=== PATIENT | female | born 1970 | race Caucasian/White ===

== ENCOUNTER 2016-12-15 21:38 | Emergency (ER) | payer SELFPAY ==
[2016-12-15 22:02] VITALS: BP 153/82
[2016-12-15] MEDS: DEXAMETHASONE SOD PHOS 4 MG/ML VIAL IM ONE (22:28)
[2016-12-15] MEDS: cefTRIAXone SODIUM 1 GM VIAL IM ONE (22:28)
[2016-12-15] MEDS: methylPREDNISolone ACETATE 80 MG/ML VIAL IM PRN (22:28)
[2016-12-15] MEDS: Lidocaine 1% 5ml(IM or SUTURE)(PAIN CLINIC) IJ ONE (22:29)
--- NOTE | 2016-12-16 06:11 | ED Physician Documentation ---
Skin Rash - HISTORIAN Historian: patient - HPI Stated Complaint: facial swelling Chief Complaint: Skin Rash Additional Information: started today Front/Back of Body, Lg (Walker): 1 - rash Onset: hours (6) Timing: still present Duration: worse Location: facial Quality: painful Identified Cause?: Yes (dental issues) When Did Symptoms Start: 12/15/16 Where: home Context: Medication Exposure: none Context: Food Exposure: none Context: Other Exposure: other (dental mary beth) Further Comments: no - ROS CONST: none CVS/RESP: none EYES/ENT: none GI/: none MS/SKIN/LYMPH: none NEURO/PSYCH: none - PAST HX Past History: hypertension, other (asthma) Other History: other (dental caries left lower jaw) Surgeries/Procedures: Yes (btl, c-sect, yohannes, t and a) Allergies/Adverse Reactions: Allergies Allergy/AdvReac Type Severity Reaction Status Date / Time aspirin AdvReac Wheezing Verified 03/13/16 22:23 Home Medications: Ambulatory Orders Medication Instructions Recorded Budesonide/Formoterol Fumarate 1 puff INH DAILY 11/18/14 [Symbicort 160-4.5 Mcg Inhaler] Lisinopril [Zestril] 20 mg PO DAILY 12/15/16 - SOCIAL HX Smoking History: non-smoker Alcohol Use: none Drug Use: none - FAMILY HX Family History: none - VITAL SIGNS Vital Signs: Vital Signs Temp Pulse Resp BP Pulse Ox 99.5 F 62 22 153/82 98 12/15/16 22:29 12/15/16 22:29 12/15/16 22:29 12/15/16 22:29 12/15/16 22:29 - REVIEWED ASSESSMENTS Nursing Assessment Reviewed: Yes Vitals Reviewed: Yes Progress - Results/Orders Results/Orders: no testing ordered - Progress Progress: Pt. given 1 gram Rocephin IM, 80 mg Depo Medrol IM and 8 mg Decadron IM in er Critical Care Note - Critical Care Note Total Time (mins): 0 ED Results Lab/Radiology - Lab Results Lab Results: none ordered - Radiology Radiology Impressions: none ordered - Orders Orders: ED Orders Category Date Time Status Dexamethasone Sod Phosphate [Decadron] Med 12/15/16 22:11 Discontinued 8 mg IM NOW ONE Lidocaine 1% 5ml(IM or SUTURE) [Xylocaine] Med 12/15/16 22:11 Discontinued 50 mg IJ NOW ONE cefTRIAXone SODIUM [Rocephin] Med 12/15/16 22:11 Discontinued 1 gm IM NOW ONE methylPREDNISolone ACETATE [Depo-Medrol] Med 12/15/16 22:10 Discontinued 80 mg IM NOW PRN Skin Rash Physical Exam - EXAM General Appearance: alert, mild distress Skin: warm,dry, erythema (submental area) Location: face Character: asymmetric, erythematous Symptoms: warmth, tenderness Extremities: non-tender, nml ROM, no edema EENT: eyes nml inspection, lips nml, gums nml, pharynx nml Neck: trachea midline, no swelling Respiratory: no resp distress, chest non-tender, breath sounds normal CVS: reg. rate & rhythm, heart sounds nml Abdomen: non-tender, no organomegaly, nml bowel sounds, no distention Neuro/Psych: oriented x3, CN's nml as tested, motor nml, sensation nml, mood/ affect nml Discharge Clincal Impression: Dental caries, Cellulitis, face Referrals: Thomas Kerns MD [Primary Care Provider] - 2 Days Home Medications: Ambulatory Orders Budesonide/Formoterol Fumarate [Symbicort 160-4.5 Mcg Inhaler] 1 puff INH DAILY 11/18/14 Lisinopril [Zestril] 20 mg PO DAILY 12/15/16 Comments: Discharged in stable condition with script for medrol dose pack and Bactrim Ds # 20 1 p.o. bid , both generic, both no refill. Condition: Stable Disposition: 01 HOME, SELF-CARE Decision to Admit: NO Decision Time: 22:20
== END 2016-12-15 22:29 | disposition home or self-care (01) ==
LOC: ED 21:38
DX: K02.9 Dental caries, unspecified (principal); L03.211 Cellulitis of face
CPT/HCPCS: 96372; 99283; J0696; J1040; J1100

== ENCOUNTER 2017-02-05 18:27 | Emergency (ER) | payer SELFPAY ==
[2017-02-05] MEDS ORDERED: FAMOTIDINE 20 MG TABLET PO ONE (18:55)
[2017-02-05] MEDS ORDERED: diphenhydrAMINE HCL 50 MG/ML VIAL IM ONE (18:55)
[2017-02-05] MEDS ORDERED: LORATADINE 10 MG TABLET PO ONE (18:55)
[2017-02-05] MEDS ORDERED: methylPREDNISolone ACETATE 80 MG/ML VIAL IM ONE (18:56)
--- NOTE | 2017-02-05 18:59 | ED Physician Documentation ---
General Adult - HISTORIAN Historian: patient - HPI Stated Complaint: Right Ear Swelling Chief Complaint: General Adult Onset: other (yesterday) Timing: worse Further Comments: yes (46 year old female patient presents with swelling to right ear. Patient states she was stung yesterday, unsure what stung her. Took 1 benadryl yesterday. No meds today.) - ROS CONST: no problems EYES/ENT: none CVS/RESP: none GI/: none MS/SKIN/LYMPH: none - PAST HX Past History: COPD, hypertension Surgeries/Procedures: BTL, cholecystectomy, hysterectomy Allergies/Adverse Reactions: Allergies Allergy/AdvReac Type Severity Reaction Status Date / Time aspirin AdvReac Wheezing Verified 02/05/17 18:51 Home Medications: Ambulatory Orders Medication Instructions Recorded Budesonide/Formoterol Fumarate 1 puff INH DAILY 11/18/14 [Symbicort 160-4.5 Mcg Inhaler] Lisinopril [Zestril] 20 mg PO DAILY 12/15/16 Albuterol Sulfate [Proair HFA] 1 inh IH PRN 02/05/17 - SOCIAL HX Smoking History: non-smoker - FAMILY HX Family History: No - VITAL SIGNS Vital Signs: Vital Signs Temp Pulse Resp BP Pulse Ox 97 F L 80 20 150/92 98 02/05/17 18:30 02/05/17 18:30 02/05/17 18:30 02/05/17 18:30 02/05/17 18:30 - REVIEWED ASSESSMENTS Nursing Assessment Reviewed: Yes Vitals Reviewed: Yes ED Results Lab/Radiology - Orders Orders: ED Orders Category Date Time Status Famotidine [Pepcid] Med 02/05/17 18:55 Once 20 mg PO NOW ONE Loratadine [Claritin] Med 02/05/17 18:55 Once 10 mg PO NOW ONE diphenhydrAMINE HCL [Benadryl] Med 02/05/17 18:55 Once 50 mg IM NOW ONE methylPREDNISolone ACETATE [Depo-Medrol] Med 02/05/17 18:56 Once 80 mg IM NOW ONE General Adult Physical Exam - PHYSICAL EXAM GENERAL APPEARANCE: mild distress EENT: eye inspection normal, ENT inspection normal, pharynx normal, no signs of dehydration, MAYRA, no nystagmus, TM's nml, other (RIght ear with erythema and significant edema; right ear canal with moderate edema, able to visualized TM.) RESPIRATORY: no resp distress, chest non-tender, breath sounds normal CVS: reg rate & rhythm SKIN: normal color, warm/dry, NR, INT, PAL, DR EXTREMITIES: non-tender, normal range of motion, no evidence of injury, no edema , J, [employer] NEURO: oriented X3, CN's nml as tested, motor nml, sensation nml, mood/affect nml Discharge Clincal Impression: Insect sting allergy, current reaction Qualifiers: Encounter type: initial encounter Injury intent: accidental or unintentional Qualified Code(s): T63.481A - Toxic effect of venom of other arthropod, accidental (unintentional), initial encounter Referrals: Thomas Kerns MD [Primary Care Provider] - 2 Days Additional Instructions: Continue Benadryl 25-50mg by mouth every 6 hours until symptoms resolve Take either Claritan, Allergra, or Zyrtec daily until symptoms resolve. See your primary doctor or return to the ER if you have increase shortness of breath or difficulty breathing. Hives can be treated at home with the above Benadryl regimen. Home Medications: Ambulatory Orders Budesonide/Formoterol Fumarate [Symbicort 160-4.5 Mcg Inhaler] 1 puff INH DAILY 11/18/14 Lisinopril [Zestril] 20 mg PO DAILY 12/15/16 Albuterol Sulfate [Proair HFA] 1 inh IH PRN 02/05/17 Condition: Stable Disposition: 01 HOME, SELF-CARE Decision to Admit: NO Decision Time: 19:01
[2017-02-05 20:02] VITALS: BP 149/86
== END 2017-02-05 19:54 | disposition home or self-care (01) ==
LOC: ED 18:27
DX: T63.481A Toxic effect of venom of other arthropod, accidental (unintentional), initial encounter (principal); X58.XXXA Exposure to other specified factors, initial encounter; Y93.9 Activity, unspecified; Y99.9 Unspecified external cause status
CPT/HCPCS: J1040; J1200; 96372; 99283

== ENCOUNTER 2017-08-04 18:05 | Emergency (ER) | payer BC ==
[2017-08-04] MEDS ORDERED: IPRATROPIUM/ALBUTEROL SULFATE 3 ML AMPUL.NEB NEB ONE ×3 (18:12→18:41)
[2017-08-04 18:19] VITALS: BP 134/72
[2017-08-04] MEDS ORDERED: methylPREDNISolone ACETATE 80 MG/ML VIAL IM PRN (18:42)
--- NOTE | 2017-08-04 18:45 | ED Physician Documentation ---
Asthma - HISTORIAN Historian: patient - HPI Stated Complaint: diff breathing Chief Complaint: Asthma Additional Information: exaberation asthma past 24-48 hrs - 3 alb txs at home still active-works is juliana nights-awoke from nap sig exab Onset: days ago (2) Duration: continues in ED, worse Initiating Event: denies: upper respiratory illness, out of meds, exercise Associated Symptoms:: trouble breathing, shortness of breath. denies: productive cough, bloody sputum Current Asthma Therapy: inhaled nebulizer, albuterol inhaler, albuterol nebulizer - ROS CONST: no problems EYES/ENT: denies: eye redness, eye itching, sore throat CVS: denies: heart racing, palpitations GI/: none MS/SKIN/LYMPH: denies: ankle swelling, leg pain, rash, swollen glands NEURO/PSYCH: denies: headache, anxiety, tingling face, muscle spasms face - PAST HX Asthma: occasional attacks. denies: frequent attacks Lung Disease: asthma, COPD, other (htn lo thryoid diabetes mellitus) Other History: diabetes Type 2 Surgeries/Procedures: cholecystectomy, , BLT Allergies/Adverse Reactions: Allergies Allergy/AdvReac Type Severity Reaction Status Date / Time aspirin AdvReac Wheezing Verified 08/04/17 18:20 Home Medications: Ambulatory Orders Medication Instructions Recorded Budesonide/Formoterol Fumarate 1 puff INH DAILY 11/18/14 [Symbicort 160-4.5 Mcg Inhaler] Albuterol Sulfate [Proair HFA] 1 inh IH PRN 02/05/17 Albuterol Sulfate [Ventolin] 2.5 mg NEB Q4 08/04/17 Levothyroxine Sodium [Unithroid] 50 mcg PO QDAY 08/04/17 Metformin HCl [Glucophage] 500 mg PO [id number] 08/04/17 - SOCIAL HX Smoking History: non-smoker Alcohol Use: none Drug Use: none - FAMILY HX Family History: asthma - VITAL SIGNS Vital Signs: Vital Signs Temp Pulse Resp BP Pulse Ox 97.9 F 71 20 134/72 99 08/04/17 18:06 08/04/17 18:06 08/04/17 18:06 08/04/17 18:06 08/04/17 18:06 - REVIEWED ASSESSMENTS Nursing Assessment Reviewed: Yes Vitals Reviewed: Yes ED Results Lab/Radiology - Radiology Radiology Impressions: cxr=nad - Orders Orders: ED Orders Category Date Time Status CHEST 2VIEW [RAD] Stat Exams 08/04/17 Ordered Chem Sticks Med 08/04/17 19:00 Ordered 1 each MC CHEMQ Ipratropium/Albuterol Sulfate [Duoneb] Med 08/04/17 18:14 Discontinued 3 ml NEB .STK-MED ONE Ipratropium/Albuterol Sulfate [Duoneb] Med 08/04/17 18:12 Discontinued 3 ml NEB NOW ONE Ipratropium/Albuterol Sulfate [Duoneb] Med 08/04/17 18:41 Once 3 ml NEB NOW ONE methylPREDNISolone ACETATE [Depo-Medrol] Med 08/04/17 18:42 Ordered 80 mg IM NOW PRN Asthma Physical Exam - EXAM General Appearance: mild distress EENT: eye inspection normal Neck: nml inspection. No: lymphadenopathy, thyromegaly Respiratory: speaks full sentences, respiratory distress (mild), decreased air movement, wheezes. No: breath sounds nml CVS: reg rate & rhythm, heart sounds normal Abdomen: non-tender, no distention Skin: color nml, no rash. No: cyanosis, diaphoresis, pallor, ecchymosis, skin rash Extremities: non-tender Neuro/Psych: oriented x3, mood/affect nml Discharge Clincal Impression: acute exaber asthma, diabetes 2 - controlled, htn-morbid obesity Referrals: Konstantin Schaeffer MD [Primary Care Provider] - 2 Days Comments: home rest cont home meds albuterol Condition: Good Disposition: 01 HOME, SELF-CARE Decision to Admit: NO Decision Time: 19:10
[2017-08-04] MEDS ORDERED: methylPREDNISolone ACETATE 80 MG/ML VIAL IM ONE (18:47)
--- NOTE | 2017-08-04 20:30 | Diagnostic Imaging Report ---
DEJAH GUEVARA [facility] [address] [facility] [address] [address] Report Submission Date: Aug 04, 2017 6:54:56 PM TIMBER WATCHMAN Patient Study Name: FLOR GUERRA Date: Aug 04, 2017 6:32:09 PM TIMBER WATCHMAN Modality Type: CR Gender: F Description: CHEST : 68 Institution: [facility] Physician: DEJAH GUEVARA 2 views of the chest History: SOA X24 HOURS, HX OF ASTHMA, NON SMOKER Comparison: None available Heart is normal in size. There is no focal consolidation, pleural effusion or pneumothorax. Motion artifact Minimal linear density noted along the right lateral lower chest wall indeterminate, related to pleural thickening versus osseous superimposition Impression: 1. Mild motion artifact. No focal consolidation or pleural effusion. 2. Questionable pleural thickening versus osseous overlap along right lateral chest wall Electronically signed on Aug 04, 2017 6:54:56 PM TIMBER WATCHMAN by: Gala PICHARDO
== END 2017-08-04 19:12 | disposition home or self-care (01) ==
LOC: ED 18:05
DX: J44.1 Chronic obstructive pulmonary disease with (acute) exacerbation (principal); J45.901 Unspecified asthma with (acute) exacerbation; Z79.51 Long term (current) use of inhaled steroids; I10 Essential (primary) hypertension; E11.9 Type 2 diabetes mellitus without complications; E66.01 Morbid (severe) obesity due to excess calories
CPT/HCPCS: 71046; J1040; 94640; 96372; 99283

== ENCOUNTER 2019-05-23 18:12 | Emergency (ER) | payer BC, OTHER ==
[2019-05-23] MEDS: IPRATROPIUM/ALBUTEROL SULFATE 3 ML AMPUL.NEB NEB ONE ×2 (18:12→18:30)
[2019-05-23] MEDS: methylPREDNISolone SOD SUCC 125 MG/2 ML VIAL IVP ONE (18:20)
--- NOTE | 2019-05-23 18:22 | ED Physician Documentation ---
Asthma - HISTORIAN Historian: patient - HPI Stated Complaint: shortness of breath Chief Complaint: Asthma Additional Information: Patient presents to ED with a 1 hour history of shortness of breath and wheezing. Patient has a history of asthma and uses nebulizer treatments, however, she has recently moved and her nebulizer machine is packed away. Patient report her PCP will not prescribe a rescue inhaler because he told her the nebulizer works better. Patient denies chest pain Onset: hours (1) Duration: continues in ED Initiating Event: out of meds Associated Symptoms:: shortness of breath. denies: fever Current Asthma Therapy: inhaled nebulizer - ROS CONST: no problems EYES/ENT: denies: runny nose CVS: denies: heart racing GI/: other. denies: vomiting, nausea MS/SKIN/LYMPH: denies: leg swelling NEURO/PSYCH: denies: headache - PAST HX Asthma: occasional attacks Lung Disease: asthma DVT/PE Risk Factors: none Allergies/Adverse Reactions: Allergies Allergy/AdvReac Type Severity Reaction Status Date / Time aspirin AdvReac Wheezing Verified 05/23/19 18:48 Home Medications: Ambulatory Orders Medication Instructions Recorded Budesonide/Formoterol Fumarate 1 puff INH DAILY 11/18/14 [Symbicort 160-4.5 Mcg Inhaler] Levothyroxine Sodium [Unithroid] 50 mcg PO QDAY 08/04/17 metFORMIN HCl [Glucophage] 500 mg PO [id number] 08/04/17 Albuterol Sulfate [Albuterol 2 puff IH Q4 PRN #1 hfa.aer.ad 05/23/19 Sulfate Hfa] Lisinopril [Zestril] 1 tab PO DAILY 05/23/19 Methylprednisolone [Medrol] 4 mg PO DIRECTED #1 tab.ds.pk 05/23/19 - SOCIAL HX Smoking History: non-smoker Alcohol Use: none Drug Use: none - FAMILY HX Family History: asthma - VITAL SIGNS Vital Signs: Vital Signs Temp Pulse Resp BP Pulse Ox 134/72 08/04/17 18:06 - REVIEWED ASSESSMENTS Nursing Assessment Reviewed: Yes Vitals Reviewed: Yes ED Results Lab/Radiology - Radiology Radiology Impressions: Report Submission Date: May 23, 2019 6:57:13 PM CABINET [employer]BR[employer] SANDB[employer]ER Patient Study Name: FLOR GUERRA Date: May 23, 2019 6:32:52 PM [employer]ET [employer] SANDB[employer]ER Modality Type: DX Gender: F Description: CHEST 2VIEW : 68 Institution: [facility] Physician: FAUSTINO VILLARREAL Chest PA and lateral views Clinical history: Dyspnea Normal heart shadow and mediastinum. Clear lungs without acute infiltrate or pleural effusion. Right pleural thickening is noted. No significant change since the previous study. Impression: No active pulmonary pathology. Electronically signed on May 23, 2019 6:57:13 PM CABINET A[employer] SANDBLASTER by: Thomas Amato - Orders Orders: ED Orders Category Date Time Status Place IV Lock 1T Care 05/23/19 18:16 Ordered CBC/PLATELET/DIFF Routine Lab 05/23/19 Ordered CMP [CMP] Routine Lab 05/23/19 Ordered Ipratropium/Albuterol Sulfate [Duoneb] Med 05/23/19 18:12 Discontinued 3 ml NEB .STK-MED ONE Ipratropium/Albuterol Sulfate [Duoneb] Med 05/23/19 18:15 Once 3 ml NEB NOW ONE methylPREDNISolone SOD SUCC [SOLU-Medrol] Med 05/23/19 18:13 Discontinued 125 mg .ROUTE .STK-MED ONE methylPREDNISolone SOD SUCC [SOLU-Medrol] Med 05/23/19 18:16 Once 125 mg IVP NOW ONE Asthma Physical Exam - EXAM General Appearance: no acute distress, alert EENT: MAYRA Respiratory: no resp. distress, other (markedly diminished breath sounds bilaterally) CVS: reg rate & rhythm, heart sounds normal Abdomen: non-tender Skin: color nml, no rash Extremities: non-tender, normal range of motion, no edema Neuro/Psych: oriented x3 Discharge Clincal Impression: Acute asthma flare Qualifiers: Asthma severity: mild Asthma persistence: intermittent Qualified Code(s): J45.21 - Mild intermittent asthma with (acute) exacerbation Prescriptions: Albuterol Sulfate [Albuterol Sulfate Hfa] 2 puff IH Q4 PRN #1 hfa.aer.ad PRN Reason: shortness of breath/wheezing Methylprednisolone [Medrol] 4 mg PO DIRECTED #1 tab.ds.pk Referrals: Konstantin Schaeffer MD [Primary Care Provider] - 2 Days Additional Instructions: 1. Start Medrol dose pack tomorrow 2. Restart your Singulair 3. Find your nebulizer machine and resume breathing treatments 4. Follow up with PCP within 1 week 5. Return to ER for new or worsening symptoms Condition: Stable Disposition: 01 HOME, SELF-CARE Decision to Admit: NO Date of Decison to Admit: 05/23/19 Decision Time: 19:16
[2019-05-23] MEDS: methylPREDNISolone SOD SUCC 125 MG/2 ML VIAL ONE (18:30)
[2019-05-23 18:38] LABS: BASOPHILS % 0.5 % (0.0-1.5); NEUTROPHILS # 6.4 # k/uL (1.4-7.7)
[2019-05-23 18:50] LABS: eGFR (Non-African) > 60
--- NOTE | 2019-05-23 19:02 | Diagnostic Imaging Report ---
PATIENT MR#: [id number] PATIENT PATIENT NAME: FLOR GUERRA DATE OF : 1970 REFERRING PHYSICIAN: Tiffanie Day EXAM DATE: 05/23/2019 ACCESSION NUMBER: [id number] EXAM DESCRIPTION: CHEST 2VIEW Chest PA and lateral views Clinical history: Dyspnea Normal heart shadow and mediastinum. Clear lungs without acute infiltrate or pleural effusion. Right pleural thickening is noted. No significant change since the previous study. Impression: No active pulmonary pathology. Read by: Dr. Thomas Amato Transcribed by: Transcribed Date: Electronically signed by: Dr. Thomas Amato Date signed: 05/23/2019 7:01:44 PM
[2019-05-23 19:46] VITALS: BP 150/92
== END 2019-05-23 19:25 | disposition home or self-care (01) ==
LOC: ED 18:12
DX: J45.21 Mild intermittent asthma with (acute) exacerbation (principal)
CPT/HCPCS: 80053; 85025; 94640; 96374; 99284; J2930; S1016